=== PATIENT | male | born 1955 | race Caucasian/White ===

== ENCOUNTER 2019-03-16 05:18 | Emergency (ER) | payer OTHER ==
[~2019-03-16] VITALS: Ht 177.8 cm; Wt 74.8 kg
[2019-03-16 06:10] LABS: BASOPHILS ABSOLUTE AUTO 0.21 K/mm3 (0.00-0.23); BASOPHILS PERCENT AUTO 2 % (0-2); EOSINOPHILS ABSOLUTE AUTO 2.15 K/mm3 (0.00-0.68); EOSINOPHILS PERCENT AUTO 23 % (0-6); Hematocrit 49.9 % (37.0-53.0); Hemoglobin 17.4 g/dL (13.5-17.5); IMMATURE GRAN ABSOLUTE AUTO 0.01 K/mm3 (0.00-0.10); IMMATURE GRAN PERCENT AUTO 0 % (0-1); LYMPHOCYTES PERCENT AUTO 14 % (21-46); MONOCYTES ABSOLUTE AUTO 0.65 K/mm3 (0.16-1.47); MONOCYTES PERCENT AUTO 7 % (4-13); Mean Corpuscular HGB 31.4 pg (26.0-34.0); Mean Corpuscular HGB Conc 34.9 g/dL (31.5-36.5); Mean Corpuscular Volume 90 fL (80-100); Mean Platelet Volume 9.3 fL (9.1-12.4); NEUTROPHILS ABSOLUTE AUTO 5.15 K/mm3 (1.96-9.15); NEUTROPHILS PERCENT AUTO 54 % (41-73); Platelet Count 289 K/mm3 (150-400); RDW Coefficient Variation 12.6 % (11.7-14.2); RDW Standard Deviation 41.5 fL (35.1-46.3); Red Blood Cell Count 5.55 M/mm3 (4.30-5.90); White Blood Cell Count 9.47 K/mm3 (4.00-11.30)
[2019-03-16 06:32] LABS: Alanine Aminotransfer (ALT/SGP 27 U/L (12-78); Albumin, Blood 4.2 g/dL (3.4-5.0); Albumin/Globulin Ratio 1.2 (0.8-1.8); Alk Phos 88 U/L (50-136); Anion Gap 4 mmol/L (6-16); Aspartate Aminotrans (AST/SGOT 18 U/L (12-37); Bilirubin, Total 0.8 mg/dL (0.1-1.0); Blood Urea Nitrogen 16 mg/dL (8-24); Bun/Creatinine Ratio 16.4 (12.0-20.0); CO2, Blood 32 mmol/L (21-32); Calcium, Blood 9.2 mg/dL (8.5-10.1); Chloride, Blood 103 mmol/L (98-108); Creatinine, Blood 0.98 mg/dL (0.60-1.20); Globulin, Blood 3.6 g/dL (2.2-4.0); Glomerular Filtration Rate >60 (60-); Glucose, Blood 106 mg/dL (70-99); Potassium, Blood 4.2 mmol/L (3.5-5.5); Sodium, Blood 139 mmol/L (136-145); Total Protein, Blood 7.8 g/dL (6.4-8.2); Troponin I <0.015 ng/mL (0.000-0.040)
[2019-03-16] MEDS ORDERED: ALBU90OI6 INH (06:41)
[2019-03-16] MEDS ORDERED: ALBU3IS INH (06:41)
[2019-03-16] MEDS ORDERED: ALBU90OI INH (08:37)
[2019-03-16] MEDS ORDERED: Prednisone20 MG PO (08:37)
[2019-03-16] MEDS ORDERED: Proventil5 MG/1 ML INH (08:37)
== END 2019-03-16 08:56 | disposition home or self-care (01) ==
LOC: ER 05:18
PROVIDERS: Emergency Medicine
DX: J45.901 Unspecified asthma with (acute) exacerbation (principal); I10 Essential (primary) hypertension
CPT/HCPCS: 36415; 71046; 80053; 84484; 85025; 93005; 93010; 94640; 94644; 96374; 99285-25; J2930

== ENCOUNTER 2022-02-28 23:52 | Inpatient (IN) | payer MEDICARE ==
[~2022-02-28] VITALS: Ht 177.8 cm; Wt 84.9 kg
[~2022-02-28 23:52] MED LIST: ALBU3IS INH; ALBU90OI INH; ALBU90OI6 INH; Flovent 44 mc10.6 GM INH; LISI20 PO; Percocet 5-3251 EACH PO; Prednisone20 MG PO; Proventil5 MG/1 ML INH
[2022-03-01 00:10] LABS: Calcium, Ionized (POC) 1.21 mmol/L (1.10-1.46); Chloride (POC) 104 mmol/L (98-108); Creatinine (POC) 1.5 mg/dL (0.8-1.3); Glucose (ISTAT POC) 160 mg/dL (70-99); Hemoglobin (POC) 17.7 g/dL (13.5-17.5); Potassium (POC) 3.3 mmol/L (3.5-5.5); Sodium (POC) 140 mmol/L (135-148); Total CO2 (POC) 22 mmol/L (21-32)
[2022-03-01 00:21] LABS: BASOPHILS ABSOLUTE AUTO 0.09 K/mm3 (0.00-0.23); BASOPHILS PERCENT AUTO 1 % (0-2); EOSINOPHILS ABSOLUTE AUTO 0.27 K/mm3 (0.00-0.68); EOSINOPHILS PERCENT AUTO 3 % (0-6); Hematocrit 52.2 % (37.0-53.0); IMMATURE GRAN ABSOLUTE AUTO 0.05 K/mm3 (0.00-0.10); IMMATURE GRAN PERCENT AUTO 1 % (0-1); LYMPHOCYTES ABSOLUTE AUTO 2.16 K/mm3 (0.84-5.20); LYMPHOCYTES PERCENT AUTO 24 % (21-46); MONOCYTES ABSOLUTE AUTO 0.72 K/mm3 (0.16-1.47); MONOCYTES PERCENT AUTO 8 % (4-13); Mean Corpuscular HGB 31.5 pg (26.0-34.0); Mean Corpuscular HGB Conc 34.5 g/dL (31.5-36.5); Mean Corpuscular Volume 91 fL (80-100); Mean Platelet Volume 9.7 fL (9.1-12.4); NEUTROPHILS ABSOLUTE AUTO 5.87 K/mm3 (1.96-9.15); NEUTROPHILS PERCENT AUTO 64 % (41-73); Platelet Count 289 K/mm3 (150-400); RDW Standard Deviation 40.6 fL (35.1-46.3); Red Blood Cell Count 5.71 M/mm3 (4.30-5.90); White Blood Cell Count 9.16 K/mm3 (4.00-11.30)
[2022-03-01 00:25] LABS: Source, Urine Foley catheter
[2022-03-01 00:30] LABS: Appearance, Urine Hazy (Clear); Bilirubin, Urine Neg (Neg); Blood, Urine 1+ (Neg); Color, Urine Yellow (P-Yellow); Glucose Qualitative, Urine Neg (Neg); Ketones, Urine Neg (Neg); Leukocyte Esterase, Urine Neg (Neg); Nitrite, Urine Neg (Neg); Protein, Urine 2+ (Neg); Urobilinogen, Urine NORM (Normal)
[2022-03-01 00:37] LABS: International Normalized Ratio 1.04; Prothrombin Time Results 10.9 Sec (9.7-11.5)
[2022-03-01 00:38] LABS: Bacteria Mod /hpf; Red Blood Cells, Urine Rare /hpf (0-2); Transitional Epithelial Cells Rare /hpf (0-Rare); White Blood Cells, Urine 0-2 /hpf (0-5)
[2022-03-01 00:39] LABS: Amorphous Light (0-Heavy); Squamous Epithelial Cells Rare /hpf (Few)
[2022-03-01 00:41] LABS: Albumin, Blood 3.7 g/dL (3.4-5.0); Albumin/Globulin Ratio 1.1 (0.8-1.8); Bilirubin, Total 0.7 mg/dL (0.1-1.0); Bun/Creatinine Ratio 16.6 (12.0-20.0); Calcium, Blood 9.2 mg/dL (8.5-10.1); Creatinine, Blood 1.45 mg/dL (0.60-1.20); Globulin, Blood 3.3 g/dL (2.2-4.0); Potassium, Blood 3.4 mmol/L (3.5-5.5)
[2022-03-01 02:40] LABS: Influenza A, PCR NEGATIVE (NEGATIVE); Influenza B, PCR NEGATIVE (NEGATIVE); Resp Syncytial Virus, PCR NEGATIVE (NEGATIVE); SARS-Cov-2 (COVID-19) PCR, MMC NEGATIVE (NEGATIVE)
--- NOTE | 2022-03-01 02:50 | NUR ---
PATIENT ARRIVED TO ICU 7 VIA GURNEY FROM ED WITH DX OF SHOCK. PATIENT TRANSFERRED TO ICU BED AND PLACED ON ICU MONITORS. PATIENT AWAKE VERBALIZED THAT HE DOESN'T REMEMBER FALLING AT HOME, NO C/O PAIN TO HEAD OR RELATED TO FALLING. PATIENT C/O PRESSURE AND TIGHTNESS TO UPPER CHEST MORE TO RIGHT SIDE OF CHEST. PATIENT STATES HE HAS HAD THIS PRESSURE FOR THE LAST 4 DAYS. NO C/O PAIN OR PRESSURE RADIATING. PATIENT ALSO C/O SLIGHT NAUSEA THAT HAS ALSO PERSISTED THE LAST 4 DAYS. PATIENTS SAND IN TO SEE PATIENT AND ASSIST WITH ADMIT QUESTIONS, PLANING ON RETURNING TO SEE HIM LATER THIS MORNING.
[2022-03-01 03:44] LABS: BASOPHILS ABSOLUTE AUTO 0.05 K/mm3 (0.00-0.23); BASOPHILS PERCENT AUTO 0 % (0-2); EOSINOPHILS ABSOLUTE AUTO 0.04 K/mm3 (0.00-0.68); EOSINOPHILS PERCENT AUTO 0 % (0-6); Hematocrit 50.4 % (37.0-53.0); Hemoglobin 17.2 g/dL (13.5-17.5); IMMATURE GRAN ABSOLUTE AUTO 0.03 K/mm3 (0.00-0.10); IMMATURE GRAN PERCENT AUTO 0 % (0-1); LYMPHOCYTES ABSOLUTE AUTO 0.69 K/mm3 (0.84-5.20); LYMPHOCYTES PERCENT AUTO 6 % (21-46); MONOCYTES ABSOLUTE AUTO 0.55 K/mm3 (0.16-1.47); MONOCYTES PERCENT AUTO 5 % (4-13); Mean Corpuscular HGB 31.7 pg (26.0-34.0); Mean Corpuscular HGB Conc 34.1 g/dL (31.5-36.5); Mean Corpuscular Volume 93 fL (80-100); Mean Platelet Volume 9.9 fL (9.1-12.4); NEUTROPHILS ABSOLUTE AUTO 10.54 K/mm3 (1.96-9.15); NEUTROPHILS PERCENT AUTO 89 % (41-73); Platelet Count 202 K/mm3 (150-400); RDW Coefficient Variation 11.9 % (11.7-14.2); RDW Standard Deviation 41.5 fL (35.1-46.3); Red Blood Cell Count 5.42 M/mm3 (4.30-5.90)
[2022-03-01 03:44] LABS: U Amphetamine Screen DETECTED; U Barbituate Screen Not Detected; U Benzodiazapine Screen Not Detected; U Buprenorphine Screen Not Detected; U Cannabinoids Screen Not Detected; U Cocaine Screen Not Detected; U Methadone Screen Not Detected; U Methamphetamine Screen DETECTED; U Opiates Screen Not Detected; U Oxycodone Screen Not Detected; U Phencyclidine Screen Not Detected; U Propoxyphene Screen Not Detected
[2022-03-01 04:10] LABS: Albumin, Blood 3.4 g/dL (3.4-5.0); Albumin/Globulin Ratio 1.1 (0.8-1.8); Bilirubin, Total 0.5 mg/dL (0.1-1.0); Bun/Creatinine Ratio 19.8 (12.0-20.0); Calcium, Blood 8.2 mg/dL (8.5-10.1); Creatinine, Blood 1.11 mg/dL (0.60-1.20); Globulin, Blood 3.1 g/dL (2.2-4.0); Potassium, Blood 4.5 mmol/L (3.5-5.5); Total Protein, Blood 6.5 g/dL (6.4-8.2)
--- NOTE | 2022-03-01 06:59 | NUR ---
SUMMARY PATIENT RESTING QUIETLY POSITIONING SELF IN BED FOR COMFORT. VERBALIZED CONTINUES TO HAVE NAUSEA MEDICATED WITH ZOFRAN. PATIENT STATES CHEST PAIN RESOLVED AT THIS TIME. PLAN TO START HEPARIN PER ORDER. PATIENT NO LONGER HAVING HYPOTENSION.
[2022-03-01 07:49] LABS: CPK Creatine Kinase 185 U/L (39-308)
--- NOTE | 2022-03-01 09:48 | NUR ---
ASSUMED CARE REPORT FROM KUMAR HIDALGO AT 0700. PT RESTING IN BED. DENIES COMPLAINTS OR NEEDS. REPORTS CHEST PAIN AND NAUSEA RESOLVED. STATES HE IS FEELING MUCH BETTER. A&OX 4. FOLLOWS COMMANDS. ANSWERS QUESTIONS APPOPRIATELY. LUNGS CLEAR. SR ON MONITOR, RATE 70'S. BP STABLE. PT P/W/D. BROWN PATENT, DRAINING TO GRAVITY. INDEPENDENT IN BED. HEPARIN STARTED AT 15 UNITS/KG/HR. PLAN FOR ANGIOGRAM THIS SHIFT. WILL CONTINUE TO MONITOR.
[2022-03-01 13:37] LABS: LDL/HDL RATIO 1.7
[2022-03-01 13:38] LABS: Cholesterol 152 mg/dL (50-200); HDL Cholesterol 50 mg/dL (>39); Low Density Lipoprotein Chol 84 mg/dL (0-110); Triglycerides 89 mg/dL (30-160); Very Low Density Lipoprot Chol 17 mg/dL (6-32)
[2022-03-01 15:30] LABS: Creatine Kinase MB 51.2 ng/mL (0.0-3.6); Creatine Kinase MB Index 14.4 (0.0-4.0)
--- NOTE | 2022-03-01 17:44 | NUR ---
SHIFT SUMMARY/TRANSFER TO [facility] PT TO LEGAL MANAGER THIS SHIFT. RIGHT RADIAL ACCESS. ALL AIR OUT OF TB BAND, WILL PLACE OPSITE AFTER IN PLACE FOR ONE HOUR POST DEFLATION. NO BLEEDING, SWELLING OR ECCHYMOSIS. DENIES NUMBNESS OR TINGLING, CAP REFILL <3 SEC. NO INTERVENTIONS COMPLETED D/T SEVERITY OF DISEASE. PT TO BE TRANSFERRED FOR CABG. AWARE. PT DENIES CHEST PAIN OR OTHER SYMPTOMS. SR, RATE 70'S ON MONITOR. BP STABLE. LUNGS CLEAR. BROWN PATENT, DRAINING CLEAR YELLOW URINE TO GRAVITY. PLAN FOR EMS ARRIVAL AT 1830, WILL CALL REPORT AT 1900. ALL BELONGINGS TO BE SENT c PT.
== END 2022-03-01 18:45 | disposition short-term general hospital (02) | DRG 280 ==
LOC: ER 23:52 → ICUE 03-01 01:28 → ICUW 03-01 01:28 → ICUE 03-01 02:50
PROVIDERS: Emergency Medicine; Internal Medicine; ADMIT Internal Medicine
PROC: 4A023N7 Measurement of Cardiac Sampling and Pressure, Left Heart, Percutaneous Approach (ICD-10-PCS; principal; 2022-03-01)
PROC: B2111ZZ Fluoroscopy of Multiple Coronary Arteries using Low Osmolar Contrast (ICD-10-PCS; 2022-03-01)
PROC: B2151ZZ Fluoroscopy of Left Heart using Low Osmolar Contrast (ICD-10-PCS; 2022-03-01)
DX: I21.19 ST elevation (STEMI) myocardial infarction involving other coronary artery of inferior wall (principal); R57.0 Cardiogenic shock; I13.0 Hypertensive heart and chronic kidney disease with heart failure and stage 1 through stage 4 chronic kidney disease, or unspecified chronic kidney disease; E87.2 Acidosis; Z20.822 Contact with and (suspected) exposure to COVID-19; N18.1 Chronic kidney disease, stage 1; I25.10 Atherosclerotic heart disease of native coronary artery without angina pectoris; I50.9 Heart failure, unspecified; R94.31 Abnormal electrocardiogram [ECG] [EKG]; E87.6 Hypokalemia; J45.909 Unspecified asthma, uncomplicated; F15.10 Other stimulant abuse, uncomplicated; I25.2 Old myocardial infarction; Z90.49 Acquired absence of other specified parts of digestive tract; Z98.890 Other specified postprocedural states; Z79.899 Other long term (current) drug therapy
CPT/HCPCS: 0241U; 36415; 51702; 70450; 71045; 76937; 80047; 80053; 80061; 81001; 82550; 82553; 83605; 83735; 83880; 84484; 85014; 85025; 85520; 85610; 85730; 87086; 93005; 93010; 93306; 93458; 96361; 96374; 99152; 99153; 99285-25; A9270; C1769; C1887; C1894; J0696; J1644; J2250; J2405; J3010; J3480; J7030; J7040; Q9967

== ENCOUNTER 2022-03-12 12:36 | Inpatient (IN) | payer MEDICARE ==
[~2022-03-12] VITALS: Ht 177.8 cm; Wt 80.0 kg
[2022-03-12 13:05] LABS: Calcium, Ionized (POC) 1.22 mmol/L (1.10-1.46); Chloride (POC) 100 mmol/L (98-108); Creatinine (POC) 1.3 mg/dL (0.8-1.3); Glucose (ISTAT POC) 137 mg/dL (70-99); Hemoglobin (POC) 11.9 g/dL (13.5-17.5); Potassium (POC) 4.6 mmol/L (3.5-5.5); Sodium (POC) 137 mmol/L (135-148); Total CO2 (POC) 27 mmol/L (21-32)
[2022-03-12 13:14] LABS: Base Excess Venous -1.3 mmol/L; Bicarbonate Venous 23.2 mmol/L (24.0-30.0); PCO2 Venous 40.4 mmHg (38-42); pH Blood Venous 7.38 (7.34-7.37)
[2022-03-12 13:49] LABS: Albumin, Blood 2.6 g/dL (3.4-5.0); Albumin/Globulin Ratio 0.6 (0.8-1.8); Bilirubin, Direct 0.2 mg/dL (0.0-0.3); Bilirubin, Indirect 0.4 mg/dL (0.1-0.7); Bilirubin, Total 0.6 mg/dL (0.1-1.0); Bun/Creatinine Ratio 10.8 (12.0-20.0); Creatinine, Blood 1.3 mg/dL (0.60-1.20); Magnesium, Blood 2.1 mg/dL (1.6-2.4); Potassium, Blood 4.3 mmol/L (3.5-5.5); Total Protein, Blood 6.6 g/dL (6.4-8.2)
[2022-03-12 14:14] LABS: International Normalized Ratio 1.23; Prothrombin Time Results 12.7 Sec (9.7-11.5)
[2022-03-12] MEDS ORDERED: Amiodarone HCl200 MG PO (14:19)
[2022-03-12] MEDS ORDERED: MASOPHEN500 M3 PO (14:19)
[2022-03-12] MEDS ORDERED: ASCO500 PO (14:25)
[2022-03-12] MEDS ORDERED: Aspir 8181 MG PO (14:26)
[2022-03-12] MEDS ORDERED: DOCU100 PO (14:26)
[2022-03-12] MEDS ORDERED: ATOR40TA PO (14:26)
[2022-03-12] MEDS ORDERED: CLOP75 PO (14:26)
[2022-03-12] MEDS ORDERED: METO25 PO (14:27)
[2022-03-12] MEDS ORDERED: Isosorbide Mono30 MG PO (14:27)
[2022-03-12] MEDS ORDERED: FURO20 PO (14:27)
[2022-03-12] MEDS ORDERED: MULVITA PO (14:27)
[2022-03-12] MEDS ORDERED: PANT40 PO (14:28)
[2022-03-12] MEDS ORDERED: OXYC5 PO (14:28)
[2022-03-12] MEDS ORDERED: MIRALAX17 GM PO (14:28)
[2022-03-12] MEDS ORDERED: POTA10T PO (14:28)
[2022-03-12 14:39] LABS: Influenza A, PCR NEGATIVE (NEGATIVE); Influenza B, PCR NEGATIVE (NEGATIVE); Resp Syncytial Virus, PCR NEGATIVE (NEGATIVE); SARS-Cov-2 (COVID-19) PCR, MMC NEGATIVE (NEGATIVE)
[2022-03-13] MEDS ORDERED: GABA300 PO (02:22)
[2022-03-13 03:59] LABS: BASOPHILS ABSOLUTE AUTO 0.09 K/mm3 (0.00-0.23); BASOPHILS PERCENT AUTO 1 % (0-2); EOSINOPHILS PERCENT AUTO 5 % (0-6); Hematocrit 34.6 % (37.0-53.0); Hemoglobin 11.7 g/dL (13.5-17.5); IMMATURE GRAN ABSOLUTE AUTO 0.06 K/mm3 (0.00-0.10); IMMATURE GRAN PERCENT AUTO 1 % (0-1); LYMPHOCYTES ABSOLUTE AUTO 1.19 K/mm3 (0.84-5.20); LYMPHOCYTES PERCENT AUTO 11 % (21-46); MONOCYTES ABSOLUTE AUTO 0.63 K/mm3 (0.16-1.47); MONOCYTES PERCENT AUTO 6 % (4-13); Mean Corpuscular HGB Conc 33.8 g/dL (31.5-36.5); Mean Corpuscular Volume 92 fL (80-100); Mean Platelet Volume 8.7 fL (9.1-12.4); NEUTROPHILS ABSOLUTE AUTO 8.13 K/mm3 (1.96-9.15); NEUTROPHILS PERCENT AUTO 77 % (41-73); Platelet Count 649 K/mm3 (150-400); RDW Coefficient Variation 11.9 % (11.7-14.2); Red Blood Cell Count 3.78 M/mm3 (4.30-5.90)
[2022-03-13 04:18] LABS: Magnesium, Blood 2.3 mg/dL (1.6-2.4)
[2022-03-13 04:19] LABS: Albumin, Blood 2.8 g/dL (3.4-5.0); Albumin/Globulin Ratio 0.7 (0.8-1.8); Bilirubin, Total 0.8 mg/dL (0.1-1.0); Bun/Creatinine Ratio 14.5 (12.0-20.0); Calcium, Blood 8.9 mg/dL (8.5-10.1); Creatinine, Blood 1.1 mg/dL (0.60-1.20); Globulin, Blood 3.9 g/dL (2.2-4.0); Potassium, Blood 4.3 mmol/L (3.5-5.5); Total Protein, Blood 6.7 g/dL (6.4-8.2)
--- NOTE | 2022-03-13 06:38 | NUR ---
NO ACUTE EVENTS OVERNIGHT. PT WAS ABLE TO REST COMFORTABLY THROUGHOUT THE NIGHT WITH NO RETURN OF SYMPTOMS FOR WHICH HE PRESENTED TO THE EMERGENCY DEPARTMENT YESTERDAY. VITAL SIGNS STABLE THROUGHOUT THE NIGHT. NO EPISODES OF LIGHTHEADEDNESS, DIAPHORESIS, NAUSEA OR VOMITING. MAP WAS CONSISTENTLY GREATER THAN 65 AND HEART RATE IN THE 70S - 80S. TROPONIN CONTINUES TO TREND DOWNWARD.
--- NOTE | 2022-03-13 09:29 | NUR ---
AM NOTE: PATIENT ALERT AND ORIENTED X4. STATES HE HAS NUMBNESS TO LEFT SECOND TOE. DENIES NUMBNESS/TINGLING ELSEWHERE. BILATERAL STRENGTH SAMPLE PREP TECHNICIAN. PERRLA. ON ROOM AIR SATING ABOVE 94%. DENIES SOB. OCCASIONAL COUGH. LUNGS SOUNDING CLEAR AND DIM IN BASES. TELE SHOWING SINUS RHYTHM, PROLONGED QTC RESOLVED. COMPLAINS OF CHEST SORENESS WITH COUGHING. DENIES PAIN/PRESSURE. S/P CABG 03/04. CABG STERNAL INCISION HEALING WELL. GRAPH SITES TO LEFT FA AND LEFT LOWER EXTREMITY. BP STABLE WITH HR 70-80'S. DENIES FEELING FAINT/DIZZY. EATING AND DRINKING THIS AM. DENIES ABDOMINAL PAIN/NAUSEA. USING URINAL TO VOID. HAS NOT YET BEEN OUT OF BED. THIS RN ASKED PATIENT TO CALL PRIOR TO GETTING UP. PATIENT VERBALIZED HE WOULD CALL. DENIES OVERALL PAIN AND NEEDS AT THIS TIME. AT BEDSIDE. CALL LIGHT IN REACH. WILL CONTINUE TO MONITOR.
--- NOTE | 2022-03-13 15:10 | NUR ---
CALL PLACED TO DR. LORENZO REGARDING HOME MEDS. MESSAGE LEFT. NO NEW ORDERS AT THIS TIME. PATIENT DENIES NEEDS. WILL CONTINUE TO MONITOR.
--- NOTE | 2022-03-13 18:03 | NUR ---
SHIFT SUMMARY: NO ACUTE CHANGES. PATIENT CONTINUES TO DENY OVERALL PAIN. SOME SORENESS ASSOCIATED WITH INCISION. NEURO REMAINS UNCHANGED AND WNL. ON ROOM AIR. TELE CONTINUES TO SHOW SINUS RHYTHM WITH HR 70-80'S. BP STABLE. PLAN TO REINTRODUCE SOME BP MEDS TONIGHT AND TOMORROW AND WORK WITH PT/OT. UP TO BATHROOM THIS AFTERNOON. DENIES DIZZINESS/FEELING FAINT WHEN UP. HR REMAINED STABLE. EATING WELL. USING URINAL AT BEDSIDE. ALL VITALS REMAINS STABLE. SLEEPING ON AND OFF. WILL CONITNUE TO MONITOR. DENIES NEEDS AT THIS TIME. CALL LIGHT IN REACH.
[2022-03-14 04:40] LABS: BASOPHILS ABSOLUTE AUTO 0.13 K/mm3 (0.00-0.23); BASOPHILS PERCENT AUTO 1 % (0-2); EOSINOPHILS ABSOLUTE AUTO 0.72 K/mm3 (0.00-0.68); EOSINOPHILS PERCENT AUTO 7 % (0-6); Hematocrit 38.7 % (37.0-53.0); Hemoglobin 12.8 g/dL (13.5-17.5); IMMATURE GRAN ABSOLUTE AUTO 0.05 K/mm3 (0.00-0.10); IMMATURE GRAN PERCENT AUTO 1 % (0-1); LYMPHOCYTES ABSOLUTE AUTO 1.14 K/mm3 (0.84-5.20); LYMPHOCYTES PERCENT AUTO 11 % (21-46); MONOCYTES PERCENT AUTO 7 % (4-13); Mean Corpuscular HGB 30.3 pg (26.0-34.0); Mean Corpuscular HGB Conc 33.1 g/dL (31.5-36.5); Mean Corpuscular Volume 92 fL (80-100); Mean Platelet Volume 9.2 fL (9.1-12.4); NEUTROPHILS PERCENT AUTO 73 % (41-73); Platelet Count 657 K/mm3 (150-400); RDW Coefficient Variation 11.8 % (11.7-14.2); RDW Standard Deviation 39.7 fL (35.1-46.3); Red Blood Cell Count 4.22 M/mm3 (4.30-5.90); White Blood Cell Count 10.14 K/mm3 (4.00-11.30)
[2022-03-14 05:08] LABS: Albumin, Blood 2.8 g/dL (3.4-5.0); Albumin/Globulin Ratio 0.7 (0.8-1.8); Bilirubin, Total 0.5 mg/dL (0.1-1.0); Bun/Creatinine Ratio 13.6 (12.0-20.0); Creatinine, Blood 1.03 mg/dL (0.60-1.20); Globulin, Blood 4.1 g/dL (2.2-4.0); Magnesium, Blood 2.4 mg/dL (1.6-2.4); Phosphorus, Blood 3.1 mg/dL (2.5-4.9); Potassium, Blood 3.9 mmol/L (3.5-5.5); Total Protein, Blood 6.9 g/dL (6.4-8.2)
[2022-03-14] MEDS ORDERED: CARV6.25 PO (10:27)
[2022-03-14] MEDS ORDERED: LOSA25 PO (10:28)
--- NOTE | 2022-03-14 11:37 | NUR ---
DISCHARGE SUMMARY PT WAS TRANSPORTED BY WHEELCHAIR TO PERSONAL VEHICLE. ALL PERSONAL BELONGINGS WERE REMOVED FROM THE ROOM BY SPOUSE PRIOR TO DISCHARGE. DISCHARGE INSTRUCTIONS WERE IN THE POSSESSION OF SPOUSE AT TIME OF DISCHARGE. PT STATED UNDERSTANDING OF INSTRUCTIONS AT DISCHARGE AND STATED NO FURTHER QUESTIONS OR CONCERNS AT THIS TIME.
== END 2022-03-14 11:30 | disposition home or self-care (01) | DRG 312 ==
LOC: ER 12:36 → PCU 18:51
PROVIDERS: Hospitalist; Student in an Organized Health Care Education/Training Program; ADMIT Internal Medicine
DX: R55 Syncope and collapse (principal); I31.3 Pericardial effusion (noninflammatory); N17.9 Acute kidney failure, unspecified; Z20.822 Contact with and (suspected) exposure to COVID-19; R00.1 Bradycardia, unspecified; I95.9 Hypotension, unspecified; R94.31 Abnormal electrocardiogram [ECG] [EKG]; I48.0 Paroxysmal atrial fibrillation; I25.10 Atherosclerotic heart disease of native coronary artery without angina pectoris; I12.9 Hypertensive chronic kidney disease with stage 1 through stage 4 chronic kidney disease, or unspecified chronic kidney disease; N18.30 Chronic kidney disease, stage 3 unspecified; J45.909 Unspecified asthma, uncomplicated; F15.10 Other stimulant abuse, uncomplicated; E78.5 Hyperlipidemia, unspecified; F12.10 Cannabis abuse, uncomplicated; Z79.899 Other long term (current) drug therapy; Z95.1 Presence of aortocoronary bypass graft; I25.2 Old myocardial infarction; Z90.49 Acquired absence of other specified parts of digestive tract; Z98.890 Other specified postprocedural states
CPT/HCPCS: 0241U; 36415; 71260; 80047; 80048; 80053; 80076; 82803; 83690; 83735; 83880; 84100; 84484; 85014; 85025; 85610; 85730; 86850; 86900; 86901; 93005; 93010; 93306; 96361; 96365; 96375; 97110; 97161; 99284-25; A9270; J0461; J1650; J2765; J3475; J7030; J7060; Q9967

== ENCOUNTER 2022-03-19 13:31 | Observation (INO) | payer MEDICARE ==
[~2022-03-19] VITALS: Ht 177.8 cm; Wt 77.1 kg
[~2022-03-19 13:31] MED LIST changes: +ASCO500 PO; +ATOR40TA PO; +Amiodarone HCl200 MG PO; +Aspir 8181 MG PO; +CARV6.25 PO; +CLOP75 PO; +DOCU100 PO; +FURO20 PO; +GABA300 PO; +Isosorbide Mono30 MG PO; +LOSA25 PO; +MASOPHEN500 M3 PO; +METO25 PO; +MIRALAX17 GM PO; +MULVITA PO; +OXYC5 PO; +PANT40 PO; +POTA10T PO
[2022-03-19 14:32] LABS: BASOPHILS ABSOLUTE AUTO 0.15 K/mm3 (0.00-0.23); BASOPHILS PERCENT AUTO 2 % (0-2); EOSINOPHILS ABSOLUTE AUTO 0.61 K/mm3 (0.00-0.68); EOSINOPHILS PERCENT AUTO 8 % (0-6); Hematocrit 35.2 % (37.0-53.0); Hemoglobin 11.6 g/dL (13.5-17.5); IMMATURE GRAN ABSOLUTE AUTO 0.05 K/mm3 (0.00-0.10); IMMATURE GRAN PERCENT AUTO 1 % (0-1); LYMPHOCYTES ABSOLUTE AUTO 0.92 K/mm3 (0.84-5.20); LYMPHOCYTES PERCENT AUTO 12 % (21-46); MONOCYTES ABSOLUTE AUTO 0.53 K/mm3 (0.16-1.47); MONOCYTES PERCENT AUTO 7 % (4-13); Mean Corpuscular HGB 30.6 pg (26.0-34.0); Mean Corpuscular Volume 93 fL (80-100); NEUTROPHILS PERCENT AUTO 70 % (41-73); Platelet Count 723 K/mm3 (150-400); RDW Coefficient Variation 12.1 % (11.7-14.2); RDW Standard Deviation 41.7 fL (35.1-46.3); Red Blood Cell Count 3.79 M/mm3 (4.30-5.90); White Blood Cell Count 7.66 K/mm3 (4.00-11.30)
[2022-03-19 14:54] LABS: Albumin, Blood 2.9 g/dL (3.4-5.0); Albumin/Globulin Ratio 0.8 (0.8-1.8); Bilirubin, Total 0.3 mg/dL (0.1-1.0); Bun/Creatinine Ratio 14.7 (12.0-20.0); Calcium, Blood 8.4 mg/dL (8.5-10.1); Creatinine, Blood 1.16 mg/dL (0.60-1.20); Globulin, Blood 3.6 g/dL (2.2-4.0); Potassium, Blood 4.9 mmol/L (3.5-5.5); Total Protein, Blood 6.5 g/dL (6.4-8.2)
[2022-03-19 15:30] LABS: Source, Urine Clean Catch
[2022-03-19 15:45] LABS: Appearance, Urine Clear (Clear); Bilirubin, Urine Neg (Neg); Blood, Urine Neg (Neg); Color, Urine Yellow (P-Yellow); Glucose Qualitative, Urine Neg (Neg); Ketones, Urine Neg (Neg); Leukocyte Esterase, Urine Neg (Neg); Nitrite, Urine Neg (Neg); Protein, Urine Neg (Neg); Specific Gravity, Urine 1.015 (1.003-1.022); Urobilinogen, Urine NORM (Normal)
[2022-03-19 15:57] LABS: U Buprenorphine Screen Not Detected; U Cannabinoids Screen Not Detected; U Opiates Screen DETECTED; U Oxycodone Screen Not Detected; U Phencyclidine Screen Not Detected
[2022-03-19 15:58] LABS: U Amphetamine Screen Not Detected; U Barbituate Screen Not Detected; U Benzodiazapine Screen Not Detected; U Cocaine Screen Not Detected; U Methadone Screen Not Detected; U Methamphetamine Screen Not Detected; U Propoxyphene Screen Not Detected
--- NOTE | 2022-03-19 19:45 | NUR ---
ADMISSION: PT CAME TO THE FLOOR VIA GURNEY AND NEEDED A SLIDE TO BED. THE PT IS A/OX4. HAS IV ACCESS X2. PER OPTOMETRY PROFESSOR: SR/80s. HE IS WEAK AND NOT READY TO GET OOB. BPs IN THE ED WERE ORTHOSTATIC. D/T RECENT CABG THE PT HAS INCISIONS TO HIS LEFT HAND AND CALF THAT ARE EPIC SPECIALIST AND HEALING WELL. HE HAS A 1L NS INFUSION THAT WAS SUPPOSED TO BE STARTED IN THE ED, BUT THE RN WILL START THE FLUIDS ON THE FLOOR. HE IS VERY PLEASANT AND COOPERATIVE. PT HAS BEEN INSTRUCTED HOW TO USE THE CALL BUTTON AND WE'LL CONTINUE TO MONITOR.
[2022-03-19] MEDS ORDERED: LISI20 PO (21:30)
[2022-03-19] MEDS ORDERED: METOPROLOL TART25 MG PO (21:39)
[2022-03-20 05:40] LABS: BASOPHILS ABSOLUTE AUTO 0.11 K/mm3 (0.00-0.23); BASOPHILS PERCENT AUTO 1 % (0-2); EOSINOPHILS ABSOLUTE AUTO 0.38 K/mm3 (0.00-0.68); EOSINOPHILS PERCENT AUTO 4 % (0-6); Hematocrit 36.4 % (37.0-53.0); Hemoglobin 11.7 g/dL (13.5-17.5); IMMATURE GRAN ABSOLUTE AUTO 0.03 K/mm3 (0.00-0.10); IMMATURE GRAN PERCENT AUTO 0 % (0-1); LYMPHOCYTES ABSOLUTE AUTO 1.08 K/mm3 (0.84-5.20); LYMPHOCYTES PERCENT AUTO 11 % (21-46); MONOCYTES ABSOLUTE AUTO 0.57 K/mm3 (0.16-1.47); MONOCYTES PERCENT AUTO 6 % (4-13); Mean Corpuscular HGB 30.2 pg (26.0-34.0); Mean Corpuscular HGB Conc 32.1 g/dL (31.5-36.5); Mean Corpuscular Volume 94 fL (80-100); Mean Platelet Volume 9.1 fL (9.1-12.4); NEUTROPHILS ABSOLUTE AUTO 7.29 K/mm3 (1.96-9.15); NEUTROPHILS PERCENT AUTO 77 % (41-73); Platelet Count 718 K/mm3 (150-400); RDW Coefficient Variation 12.1 % (11.7-14.2); RDW Standard Deviation 41.8 fL (35.1-46.3); Red Blood Cell Count 3.88 M/mm3 (4.30-5.90); White Blood Cell Count 9.46 K/mm3 (4.00-11.30)
[2022-03-20 06:05] LABS: Anion Gap 6 mmol/L (6-16); Blood Urea Nitrogen 16 mg/dL (8-24); Bun/Creatinine Ratio 16.4 (12.0-20.0); CO2, Blood 28 mmol/L (21-32); Calcium, Blood 8.8 mg/dL (8.5-10.1); Chloride, Blood 105 mmol/L (98-108); Creatinine, Blood 0.98 mg/dL (0.60-1.20); Glomerular Filtration Rate 85 (60-); Glucose, Blood 86 mg/dL (70-99); Magnesium, Blood 2.1 mg/dL (1.6-2.4); Phosphorus, Blood 3.8 mg/dL (2.5-4.9); Sodium, Blood 139 mmol/L (136-145)
--- NOTE | 2022-03-20 06:19 | NUR ---
SHIFT SUMMARY: PT IS A/OX4. PER TELE MONITOR: SR/60-80s. HIS HAND IV WAS REMOVED, BUT THE PT STILL HAS A 20G IN HIS RT AC. THE PATIENT HAS NOT BEEN OOB THIS SHIFT. HE USES THE URINAL AND WILL ALSO USE THE CALL BUTTON FOR NEEDS. EARLIER IN THE SHIFT HE DID C/O HEADACHE AND PRN TYLENOL WAS ORDERED. HE DID NOT RECEIVE THE PRN MED D/T HIM BACK ASLEEP. CALL LIGHT IS WITHIN REACH AND WE'LL KEEP MONITORING.
--- NOTE | 2022-03-20 12:44 | NUR ---
DISCHARGE SUMMARY: PT EDUCATED ON DISCHARGE PLAN AND MEDICATIONS BY TAYO PARSON RN. PT ESCORTED DOWN TO POV WITH BY WHEELCHAIR. PT BELONGINGS SENT WITH PT.
== END 2022-03-20 12:23 | disposition home or self-care (01) ==
LOC: ER 13:31 → MEDS 13:32
PROVIDERS: Emergency Medicine; ADMIT Family Medicine
DX: I95.1 Orthostatic hypotension (principal); S01.112A Laceration without foreign body of left eyelid and periocular area, initial encounter; W18.30XA Fall on same level, unspecified, initial encounter; I12.9 Hypertensive chronic kidney disease with stage 1 through stage 4 chronic kidney disease, or unspecified chronic kidney disease; N18.30 Chronic kidney disease, stage 3 unspecified; I25.10 Atherosclerotic heart disease of native coronary artery without angina pectoris; Z95.1 Presence of aortocoronary bypass graft; Z79.82 Long term (current) use of aspirin; Z79.899 Other long term (current) drug therapy
CPT/HCPCS: 36415; 70450; 80053; 80069; 81003; 82330; 83735; 84443; 84484; 85025; 93005; 93010; 96372; G0378; J1650; J7030

== ENCOUNTER 2022-03-23 14:43 | Observation (INO) | payer MEDICARE ==
[~2022-03-23] VITALS: Ht 185.4 cm; Wt 68.0 kg
[~2022-03-23 14:43] MED LIST changes: +METOPROLOL TART25 MG PO
[2022-03-23 15:33] LABS: BASOPHILS ABSOLUTE AUTO 0.17 K/mm3 (0.00-0.23); BASOPHILS PERCENT AUTO 3 % (0-2); EOSINOPHILS ABSOLUTE AUTO 0.61 K/mm3 (0.00-0.68); EOSINOPHILS PERCENT AUTO 10 % (0-6); Hemoglobin 12.7 g/dL (13.5-17.5); IMMATURE GRAN ABSOLUTE AUTO 0.02 K/mm3 (0.00-0.10); IMMATURE GRAN PERCENT AUTO 0 % (0-1); LYMPHOCYTES ABSOLUTE AUTO 1.13 K/mm3 (0.84-5.20); LYMPHOCYTES PERCENT AUTO 18 % (21-46); MONOCYTES ABSOLUTE AUTO 0.49 K/mm3 (0.16-1.47); MONOCYTES PERCENT AUTO 8 % (4-13); Mean Corpuscular HGB Conc 32.6 g/dL (31.5-36.5); Mean Corpuscular Volume 92 fL (80-100); NEUTROPHILS ABSOLUTE AUTO 3.96 K/mm3 (1.96-9.15); NEUTROPHILS PERCENT AUTO 62 % (41-73); Platelet Count 636 K/mm3 (150-400); RDW Coefficient Variation 12.3 % (11.7-14.2); RDW Standard Deviation 41.2 fL (35.1-46.3); Red Blood Cell Count 4.23 M/mm3 (4.30-5.90); White Blood Cell Count 6.38 K/mm3 (4.00-11.30)
[2022-03-23 15:42] LABS: Albumin, Blood 3.1 g/dL (3.4-5.0); Albumin/Globulin Ratio 0.9 (0.8-1.8); Bilirubin, Total 0.5 mg/dL (0.1-1.0); Bun/Creatinine Ratio 12.1 (12.0-20.0); Calcium, Blood 8.9 mg/dL (8.5-10.1); Creatinine, Blood 1.07 mg/dL (0.60-1.20); Globulin, Blood 3.6 g/dL (2.2-4.0); Total Protein, Blood 6.7 g/dL (6.4-8.2)
[2022-03-23] MEDS ORDERED: LISI20 PO (22:29)
[2022-03-23] MEDS ORDERED: NEURONTIN300 MG PO (22:31)
[2022-03-23] MEDS ORDERED: METOPROLOL TART25 MG PO (22:31)
[2022-03-23] MEDS ORDERED: FUROSEMIDE20 MG PO (22:32)
[2022-03-23] MEDS ORDERED: CARVEDILOL6.25 MG PO (22:34)
[2022-03-23] MEDS ORDERED: LOSARTAN POTASS25 M2 PO (22:34)
[2022-03-23] MEDS ORDERED: Amiodarone HCl200 MG PO (22:35)
[2022-03-24 04:55] LABS: BASOPHILS ABSOLUTE AUTO 0.13 K/mm3 (0.00-0.23); BASOPHILS PERCENT AUTO 2 % (0-2); EOSINOPHILS PERCENT AUTO 6 % (0-6); Hemoglobin 12.6 g/dL (13.5-17.5); IMMATURE GRAN ABSOLUTE AUTO 0.02 K/mm3 (0.00-0.10); IMMATURE GRAN PERCENT AUTO 0 % (0-1); LYMPHOCYTES ABSOLUTE AUTO 1.31 K/mm3 (0.84-5.20); LYMPHOCYTES PERCENT AUTO 18 % (21-46); MONOCYTES ABSOLUTE AUTO 0.44 K/mm3 (0.16-1.47); MONOCYTES PERCENT AUTO 6 % (4-13); Mean Corpuscular HGB 29.9 pg (26.0-34.0); Mean Corpuscular HGB Conc 33.2 g/dL (31.5-36.5); Mean Corpuscular Volume 90 fL (80-100); Mean Platelet Volume 9.1 fL (9.1-12.4); NEUTROPHILS ABSOLUTE AUTO 4.95 K/mm3 (1.96-9.15); NEUTROPHILS PERCENT AUTO 68 % (41-73); Platelet Count 601 K/mm3 (150-400); RDW Coefficient Variation 12.1 % (11.7-14.2); RDW Standard Deviation 39.7 fL (35.1-46.3); Red Blood Cell Count 4.21 M/mm3 (4.30-5.90); White Blood Cell Count 7.25 K/mm3 (4.00-11.30)
[2022-03-24 05:31] LABS: Albumin, Blood 3.2 g/dL (3.4-5.0); Bilirubin, Total 0.6 mg/dL (0.1-1.0); Bun/Creatinine Ratio 13.2 (12.0-20.0); Creatinine, Blood 0.99 mg/dL (0.60-1.20); Globulin, Blood 3.3 g/dL (2.2-4.0); Potassium, Blood 4.1 mmol/L (3.5-5.5); Total Protein, Blood 6.5 g/dL (6.4-8.2)
--- NOTE | 2022-03-24 06:19 | NUR ---
SHIFT SUMMARY NOC: PT REPORTED HEADACHE UPON ARRIVAL TO FLOOR, TYLENOL GIVEN. PT REPORTED NAUSEA D/T NOT EATING ALL DAY, ZOFRAN GIVEN. PT ORTHOSTATIC POSITIVE. PT SLEPT ALL NIGHT. NO ADVERSE EVENTS.
--- NOTE | 2022-03-24 18:49 | NUR ---
SHIFT SUMMARY; PATIENT REMAINS ON BEDREST TODAY. ONLY GETTING UP WITH ASSIST TO THE BEDSIDE COMMODE NEEDED. HE DENIES ANY CP OR PRESSURE TODAY. TELE MONITOR SHOWS 3 EPISODES OF BRADYCARDIA DOWN TO THE HIGH 40'S. CHRYSTAL REMAINS ASYMPTOMATIC. HE IS AO X 4. CHRYSTAL REMAINS VERY CONCERNED THAT HE IS IN AND OUT OF THE HOSPITAL X 3 SINCE HIS CABG 4 WEEKS AGO? HIS STERNAL WOUND IS HEALING WELL AND SCABBING IS NOTED. NO REDNESS OR DEHISCENCE NOTED. BOTH WOUNDS ON HIS RIGHT ARM AND HIS RIGHT LEG ARE HEALING NICELY AND LEFT OPEN TO AIR,
[2022-03-24 20:36] LABS: Source, Urine Clean Catch
[2022-03-24 20:39] LABS: Appearance, Urine Clear (Clear); Bilirubin, Urine Neg (Neg); Blood, Urine Neg (Neg); Color, Urine Pale Yellow (P-Yellow); Glucose Qualitative, Urine Neg (Neg); Ketones, Urine Neg (Neg); Leukocyte Esterase, Urine Neg (Neg); Nitrite, Urine Neg (Neg); Protein, Urine Neg (Neg); Urobilinogen, Urine NORM (Normal)
[2022-03-24 20:54] LABS: U Amphetamine Screen Not Detected; U Barbituate Screen Not Detected; U Benzodiazapine Screen Not Detected; U Buprenorphine Screen Not Detected; U Cannabinoids Screen Not Detected; U Cocaine Screen Not Detected; U Methadone Screen Not Detected; U Methamphetamine Screen Not Detected; U Opiates Screen Not Detected; U Oxycodone Screen Not Detected; U Phencyclidine Screen Not Detected; U Propoxyphene Screen Not Detected
--- NOTE | 2022-03-25 05:27 | NUR ---
SHIFT SUMMARY NOC: PT SLEPT IN BED ALL NIGHT. NO C/O CHEST PAIN OR DIZZINESS. PT HR SINUS REBECA 50'S WHILE SLEEPING. NO ACUTE EVENTS.
--- NOTE | 2022-03-25 17:42 | NUR ---
SHIFT SUMMARY PT A&OX4, MOOD UP AND DOWN T/O SHIFT. PT VERBALIZED FRUSTRATION W/ NO DISCHARGE THIS SHIFT. PT STATES HE WANTS TO BE RELEASED TO GO HOME. TOLERATING PO INTAKE, DENIES DIZZINESS. VSS. CALL LIGHT W/IN REACH. SPOUSE IN THIS SHIFT AND ASSISTED PT TO AMBULATE IN HALLS.
--- NOTE | 2022-03-26 05:31 | NUR ---
SHIFT SUMMARY NOC: CONSULTING PRACTICE MANAGER REPORTS PT HAD 2.6 SEC PAUSE AND HEART RATE TOUCHED 39 WHILE SLEEPING. PT WOKEN AND REPORTS NO CHEST PAIN, SOB, DIZZINESS, NAUSEA. PT SLEPT ALL NIGHT AND HAS BEEN COOPERATIVE WITH CARE.
[2022-03-26 05:32] LABS: BASOPHILS ABSOLUTE AUTO 0.18 K/mm3 (0.00-0.23); BASOPHILS PERCENT AUTO 2 % (0-2); EOSINOPHILS ABSOLUTE AUTO 0.92 K/mm3 (0.00-0.68); EOSINOPHILS PERCENT AUTO 12 % (0-6); Hematocrit 40.2 % (37.0-53.0); Hemoglobin 13.8 g/dL (13.5-17.5); IMMATURE GRAN ABSOLUTE AUTO 0.02 K/mm3 (0.00-0.10); IMMATURE GRAN PERCENT AUTO 0 % (0-1); LYMPHOCYTES ABSOLUTE AUTO 1.35 K/mm3 (0.84-5.20); LYMPHOCYTES PERCENT AUTO 17 % (21-46); MONOCYTES ABSOLUTE AUTO 0.69 K/mm3 (0.16-1.47); MONOCYTES PERCENT AUTO 9 % (4-13); Mean Corpuscular HGB 30.7 pg (26.0-34.0); Mean Corpuscular HGB Conc 34.3 g/dL (31.5-36.5); Mean Corpuscular Volume 89 fL (80-100); Mean Platelet Volume 8.8 fL (9.1-12.4); NEUTROPHILS ABSOLUTE AUTO 4.82 K/mm3 (1.96-9.15); NEUTROPHILS PERCENT AUTO 60 % (41-73); Platelet Count 460 K/mm3 (150-400); RDW Coefficient Variation 12.2 % (11.7-14.2); RDW Standard Deviation 40.1 fL (35.1-46.3); White Blood Cell Count 7.98 K/mm3 (4.00-11.30)
[2022-03-26 05:49] LABS: Albumin, Blood 3.3 g/dL (3.4-5.0); Albumin/Globulin Ratio 0.9 (0.8-1.8); Bilirubin, Total 0.6 mg/dL (0.1-1.0); Bun/Creatinine Ratio 15.3 (12.0-20.0); Creatinine, Blood 1.11 mg/dL (0.60-1.20); Globulin, Blood 3.5 g/dL (2.2-4.0); Potassium, Blood 4.1 mmol/L (3.5-5.5); Total Protein, Blood 6.8 g/dL (6.4-8.2)
--- NOTE | 2022-03-26 06:38 | NUR ---
GENERAL EXPEDITOR REPORTS PT HAD 2.3 SEC PAUSE. PT IS ASYMPTOMATIC.
--- NOTE | 2022-03-26 10:31 | NUR ---
MED RECONCILE COMPLETED PER LIST PROVIDED FROM [facility] DATED 03/22/22 FROM .
--- NOTE | 2022-03-26 14:50 | NUR ---
DISCHARGE PT DISCHARGED AT 1444. PT EDUCATED ON DC INSTRUCTIONS AND DENIES FURTHER QUESTIONS AT THIS TIME. IV REMOVED & INTACT. PT WHEELED OUT BY THIS RN, WAITING OUTSIDE TO BE PICKED UP BY HIS FRIEND.
[2022-04-01] MEDS ORDERED: MIDODRINE HCL10 M6 PO (13:57)
== END 2022-03-26 14:44 | disposition home or self-care (01) ==
LOC: ER 14:43 → MEDS 14:44
PROVIDERS: Internal Medicine; Student in an Organized Health Care Education/Training Program; ADMIT Internal Medicine
DX: R55 Syncope and collapse (principal); I13.10 Hypertensive heart and chronic kidney disease without heart failure, with stage 1 through stage 4 chronic kidney disease, or unspecified chronic kidney disease; N18.30 Chronic kidney disease, stage 3 unspecified; I25.10 Atherosclerotic heart disease of native coronary artery without angina pectoris; J45.909 Unspecified asthma, uncomplicated; F15.10 Other stimulant abuse, uncomplicated; F12.10 Cannabis abuse, uncomplicated; I35.8 Other nonrheumatic aortic valve disorders; I48.0 Paroxysmal atrial fibrillation; E78.5 Hyperlipidemia, unspecified; E87.2 Acidosis; I95.9 Hypotension, unspecified; Z95.1 Presence of aortocoronary bypass graft; Z79.01 Long term (current) use of anticoagulants; Z90.49 Acquired absence of other specified parts of digestive tract; Z79.82 Long term (current) use of aspirin
CPT/HCPCS: 36415; 71046; 80053; 81003; 83605; 83735; 83880; 84484; 85025; 93005; 93010; 93246; 96372; 99285-25; A9270; G0378; J1650; J2405; J7030

== ENCOUNTER 2024-12-06 07:07 | Inpatient (IN) | payer MEDICARE ==
[~2024-12-06] VITALS: Ht 177.8 cm; Wt 817.4 kg
[~2024-12-06 07:07] MED LIST changes: +CARVEDILOL6.25 MG PO; +FUROSEMIDE20 MG PO; +LOSARTAN POTASS25 M2 PO; +MIDODRINE HCL10 M6 PO; +NEURONTIN300 MG PO
[2024-12-06] MEDS ORDERED: Ondansetron HCl 2 MG / ML 2ML Vial IV ONE (07:15)
[2024-12-06] MEDS ORDERED: NS 1,000 ML IV SCH (07:15)
[2024-12-06 07:25] LABS: BASOPHILS ABSOLUTE AUTO 0.11 K/mm3 (0.00-0.23); BASOPHILS PERCENT AUTO 1 % (0-2); EOSINOPHILS PERCENT AUTO 5 % (0-6); Hematocrit 39.8 % (37.0-53.0); IMMATURE GRAN ABSOLUTE AUTO 0.04 K/mm3 (0.00-0.10); IMMATURE GRAN PERCENT AUTO 1 % (0-1); LYMPHOCYTES ABSOLUTE AUTO 1.86 K/mm3 (0.84-5.20); LYMPHOCYTES PERCENT AUTO 22 % (21-46); MONOCYTES PERCENT AUTO 9 % (4-13); Mean Corpuscular HGB 30.7 pg (26.0-34.0); Mean Corpuscular HGB Conc 35.2 g/dL (31.5-36.5); Mean Corpuscular Volume 87 fL (80-100); Mean Platelet Volume 9.4 fL (9.1-12.4); NEUTROPHILS ABSOLUTE AUTO 5.33 K/mm3 (1.96-9.15); NEUTROPHILS PERCENT AUTO 62 % (41-73); Platelet Count 324 K/mm3 (150-400); RDW Coefficient Variation 12.3 % (11.7-14.2); RDW Standard Deviation 39.3 fL (35.1-46.3); Red Blood Cell Count 4.56 M/mm3 (4.30-5.90); White Blood Cell Count 8.54 K/mm3 (4.00-11.30)
[2024-12-06 07:25] LABS: Calcium, Ionized (POC) 1.09 mmol/L (1.10-1.46); Chloride (POC) 104 mmol/L (98-108); Creatinine (POC) 1.3 mg/dL (0.8-1.3); Glucose (ISTAT POC) 110 mg/dL (70-99); Hemoglobin (POC) 13.9 g/dL (13.5-17.5); Potassium (POC) 3.8 mmol/L (3.5-5.5); Sodium (POC) 139 mmol/L (135-148); Total CO2 (POC) 23 mmol/L (21-32)
[2024-12-06] MEDS ORDERED: AMLO10 PO (07:31)
[2024-12-06] MEDS ORDERED: CALCIUM GLUC IN NACL, ISO-OSM 50 ML IV ONE (07:35)
[2024-12-06 07:46] LABS: Albumin/Globulin Ratio 0.8 (0.8-1.8); Bilirubin, Total 0.6 mg/dL (0.1-1.0); Bun/Creatinine Ratio 13.4 (12.0-20.0); Calcium, Blood 8.4 mg/dL (8.5-10.1); Creatinine, Blood 1.19 mg/dL (0.60-1.20); Globulin, Blood 3.6 g/dL (2.2-4.0); Potassium, Blood 3.6 mmol/L (3.5-5.5); Total Protein, Blood 6.6 g/dL (6.4-8.2)
[2024-12-06] MEDS ORDERED: FentaNYL Citrate 50 MCG/ML 2 ML Injection ONE (10:24)
[2024-12-06] MEDS ORDERED: NS 1,000 ML IV ONE (10:24)
[2024-12-06] MEDS ORDERED: Midazolam HCl 1MG / ML 2ML Vial ONE (10:24)
[2024-12-06] MEDS ORDERED: Heparin Sodium 1000 Units/ML 10ML MDV ONE (10:25)
[2024-12-06] MEDS ORDERED: NS 250 ML IV ONE (10:25)
[2024-12-06] MEDS ORDERED: FLU VACC TS2024-25(6MOS UP)/PF 45 MCG/0.5 ML SYRINGE IM SCH (10:35)
[2024-12-06 11:50] VITALS: BP 142/97
--- NOTE | 2024-12-06 11:57 | NUR ---
PT BROUGHT TO ROOM ICU 12 FROM [facility] AT 1145. HAS TEMP PACER TO R SIDE AT 35CM AT INSERTION SITE. RATE OF 60, MA 5, SENSE 2. PT HR IS SR 80, RA 100%. DENIES CP OR PRESSURE, SOB, AND NAUSEA. NO SIGN OF DISTRESS. AWAITING TRANSPORT PT WILL BE TRANSFERING TO [facility] FOR PERMANENT PACER.
[2024-12-06 12:00] VITALS: BP 141/112
[2024-12-06 12:22] VITALS: BP 141/112
--- NOTE | 2024-12-06 12:23 | NUR ---
REPORT GIVEN TO KUMAR AT [facility] ICU. PT ROOM ASSIGNMENT [id number]. AT BEDSIDE, UPDATED ON PLAN OF CARE. PT DEPARTED UNIT AT 1226, ESCORTED BY [facility] STAFF.
[2024-12-06] MEDS ORDERED: EPINEPhrine HCl 0.1 MG/ML 10ML SYR XX ONE (12:32)
== END 2024-12-06 13:00 | disposition short-term general hospital (02) | DRG 309 ==
LOC: ER 07:07 → ICUE 10:30
PROVIDERS: Student in an Organized Health Care Education/Training Program; ADMIT Internal Medicine
PROC: 5A1223Z Performance of Cardiac Pacing, Continuous (ICD-10-PCS; principal; 2024-12-06)
DX: I44.1 Atrioventricular block, second degree (principal); I13.0 Hypertensive heart and chronic kidney disease with heart failure and stage 1 through stage 4 chronic kidney disease, or unspecified chronic kidney disease; I50.32 Chronic diastolic (congestive) heart failure; I48.0 Paroxysmal atrial fibrillation; N18.30 Chronic kidney disease, stage 3 unspecified; I25.10 Atherosclerotic heart disease of native coronary artery without angina pectoris; I52 Other heart disorders in diseases classified elsewhere; I95.9 Hypotension, unspecified; E83.51 Hypocalcemia; Z79.82 Long term (current) use of aspirin; Z95.1 Presence of aortocoronary bypass graft
CPT/HCPCS: 33210; 71045; 76937; 80047; 80053; 83735; 83880; 84484; 85014; 85025; 93005; 93010; 99152; 99153; C1894; J0612; J1644; J2250; J2405; J3010; J7030; J7050